=== PATIENT | female | born 1990 | race Caucasian/White ===

== ENCOUNTER 2017-01-08 23:20 | Inpatient (IN) | payer BC ==
[~2017-01-08] VITALS: Ht 157.5 cm; Wt 69.6 kg
[2017-01-09 01:16] VITALS: BP 113/78; PULSE 113; Ht 157.5 cm; Wt 69.6 kg
[2017-01-09] MEDS ORDERED: LACTATED RINGER'S 1,000 ML IV SCH (01:19)
[2017-01-09] MEDS ORDERED: LACTATED RINGER'S 1,000 ML IV PRN (01:30)
[2017-01-09] MEDS ORDERED: OXYTOCIN 30 UNITS/LR 500 ML IV PRN ×2 (01:30→03:00)
[2017-01-09] MEDS ORDERED: BUTORPHANOL 2 MG INJ IV PRN (01:30)
[2017-01-09] MEDS ORDERED: LIDOCAINE 1% (MPF) 30 ML INJ INJ PRN (01:30)
[2017-01-09] MEDS ORDERED: OXYTOCIN 30 UNITS/LR 500 ML IV SCH ×3 (01:30→03:00)
[2017-01-09] MEDS ORDERED: MISOPROSTOL 200 MCG TAB PR PRN ×2 (01:30→03:00)
[2017-01-09] MEDS ORDERED: METHYLERGONOVINE 0.2 MG INJ IM PRN ×2 (01:30→03:00)
[2017-01-09] MEDS ORDERED: CARBOPROST 250 MCG INJ IM PRN ×2 (01:30→03:00)
[2017-01-09] MEDS ORDERED: OXYCODONE/ASPIRIN (4.88/325) TAB PO PRN (01:30)
[2017-01-09 02:01] LABS: BASOPHILS % 0.3 % (0.0-2.0); EOSINOPHILS % 0.2 % (0.0-7.0); HEMATOCRIT 31.2 % (37.0-47.0); LYMPHOCYTES # 1.6 10^3/ul (0.8-2.9); LYMPHOCYTES % 15.9 % (15.0-51.0); MEAN CORPUSCULAR HGB CONC 32.1 g/dl (32.0-37.0); MEAN CORPUSCULAR VOLUME 74.8 fl (82.0-101.0); MEAN PLATELET VOLUME 10.7 fl (7.4-10.4); MONOCYTE # 0.8 10^3/ul (0.3-0.9); MONOCYTES % 7.6 % (0.0-11.0); NEUTROPHILS % 74.7 % (39.0-77.0); PLATELET COUNT 232 10^3/UL (140-415); RED BLOOD COUNT 4.17 10^6/ul (4.20-5.40); RED CELL DISTRIBUTION WIDTH 14.5 % (11.5-14.5); WHITE BLOOD COUNT 9.9 10^3/ul (4.8-10.8)
[2017-01-09 02:29] LABS: INR 0.91; PROTIME 12.2 Sec (12.2-14.2)
[2017-01-09 02:30] LABS: PARTIAL THROMBOPLASTIN TIME 23.3 Sec (25.0-35.0)
[2017-01-09] MEDS ORDERED: HYDROCODONE/APAP (5/325) TAB PO PRN ×2 (03:00)
[2017-01-09] MEDS ORDERED: BENZOCAINE 20% 56 ML SPRAY TOP PRN (03:00)
[2017-01-09] MEDS ORDERED: LANOLIN 7 GM TUBE TOP PRN (03:00)
[2017-01-09] MEDS: LACTATED RINGER'S 1,000 ML IV* SCH ×3 (03:00→19:00)
--- NOTE | 2017-01-09 03:05 | LDN ---
Date/Time of Note Date/Time of Note DATE: 01/09/17 TIME: 03:03 Delivery Summary of a viable baby girl weighing 2925 grams, or 6# 7 oz, 18.5" long, and with Apgars of 9/9. Weeks of Gestation 37w 2d Placenta Delivered: Spontaneously Meconium: none Episiotomy: No Perineal laceration: 2 Laceration repair: 2 small first degree vaginal lacerations repaired with 2-0 chromic for hemostasis. Anesthesia type: Local Estimated blood loss: 150 Sponge & Needle done & correct: Yes All needle counts correct: Yes Any foreign bodies felt in the: No (vagina) Problems: Delivery Information Sex Infant Sex: female Apgars 1 Minute: 9 5 Minute: 9 Suctioning Nose & mouth suctioned at poonam: Yes Delee suction performed: No Umbilical Cord Umbilical cord with: 3 Vessels Cord presentations: no nuchal cord Cord Blood was obtained: Yes Mother & Baby Disposition Disposition Mom & Baby to Maternity; Good: Yes Baby to NICU: No PREETHI HARRIS MD Jan 09, 2017 03:05
--- NOTE | 2017-01-09 03:11 | HP ---
Date/Time of Note Date/Time of Note DATE: 01/09/17 TIME: 03:06 OB - History Hx of Present Free Text/Dictation 26 y.o. with an IUP at 37w 2d who came in active labor progressing rapidly. Chief Complaint: Labor Last Menstrual Period: Apr 23, 2016 Estimated Due Date: Jan 28, 2017 : 4 Para: 3 Care: Good Care Ultrasounds: Normal mid trimester US (Diet controlled) Obstetrical Complications: Gestational Diabetes Medical Complications: None Past Family/Social History * Past Medical, Surgical, Family and Obstetric Histories reviewed from chart. Blood Type: O+ Rubella: immune RPR/VDRL: Negative GBS Status: Negative HBsAG: Negative OB Admission Exam Vital Signs Vital Signs Vital Signs Date Time Temp Pulse Resp B/P Pulse Ox O2 Delivery O2 Flow Rate FiO2 01/09/17 01:16 98.9 113 113/78 97 Room Air Physical Exam HEENT: WNL Heart: Rhythm Normal Lungs: Clear Abdomen: WNL Extremities: Normal Reflexes: Normal Cervical Dilatation: 4cm Effacement: 75% Station: -2 Membranes: Intact Amniotic Fluid: Clear Heart Rate: 140's Accelerations: Accelerations Present Decelerations: No Decelerations Varibility: Moderate Contractions on Admission: < 5 Minutes Apart Last 72 hours Lab Results CBC & BMP 01/09/17 01:35 OB Assessment/Plan Reason for admission: active labor Other Assessment: Gestational diabetes, diet controlled. Plan: Expectant Management PREETHI HARRIS MD Jan 09, 2017 03:11
--- NOTE | 2017-01-09 04:09 | TRIAGE ---
OB Triage Datetime Report Generated by CPN: 01/09/2017 04:08 Datetime: 01/09/2017 03:22 Stage of : Recovery Pain Assessment Pain Scale: 7 Pain Presence: Constant Pain Type: Cramping Pain Location: Abdomen Pain Goal: 2 Pain Relief Measures: Comfort Measures Datetime: 01/09/2017 03:07 Stage of : Recovery Pain Assessment Pain Scale: 7 Pain Presence: Constant Pain Type: Cramping Pain Location: Abdomen Pain Goal: 2 Pain Relief Measures: Comfort Measures Datetime: 01/09/2017 02:55 Stage of : Recovery Datetime: 01/09/2017 02:52 Stage of : Recovery Pain Assessment Pain Scale: 8 Pain Presence: Constant Pain Type: Cramping Pain Location: Abdomen Pain Goal: 2 Pain Relief Measures: Comfort Measures Datetime: 01/09/2017 02:37 Stage of : Recovery Temperature Route: Axillary Pain Assessment Pain Scale: 8 Pain Presence: Constant Pain Type: Cramping Pain Location: Abdomen Pain Goal: 2 Pain Relief Measures: Comfort Measures Datetime: 01/09/2017 02:28 Labor Evaluation Frequency: 1-6 Monitor Mode: External Duration (sec)2399: 60-110 Quality: Strong Pattern: Normal: <= 5 Contractions in 10 Minutes Resting Tone [place]: Relaxed Heart Rate FHR Baseline Rate: 130 Monitor Mode: External US Variability: Moderate 6-25 bpm Comments: UNABLE TO DETERMINE IF DECELS OCCURED DURING UC'S PT WAS SHIFTING IN BED WITH E VERY UC MAKING IT IMPOSSIBLE TO MONITOR BABY. Datetime: 01/09/2017 02:26 Vaginal Exam Dilatation (cms): 10.0 Effacement (%): 100 Station: 1 Membrane Status: Ruptured Membranes Rupture Method: Spontaneous Amniotic Fluid Color: Clear Amniotic Fluid Amount: Small Datetime: 01/09/2017 02:22 Vaginal Exam Dilatation (cms): 5.0 Datetime: 01/09/2017 02:17 Vaginal Exam Dilatation (cms): 5.0 Effacement (%): 90 Station: -1 Datetime: 01/09/2017 02:10 Monitor Mode: External US Comments: UNABLE TO MAINTAIN CONTINOUS MONITORING DUE TO PT SHIFTING IN BED WITH EVERY UC Datetime: 01/09/2017 01:58 Assessment Type: Admission Assessment Vaginal Bleeding: None Maternal Assessment Level of Consciousness: Fully Conscious Headache: Denies Blurred Vision: No Respiratory Effort: Unlabored; Regular Rhythm; Equal Expansion Nausea/Vomiting: Denies RUQ Epigastric Pain: Denies Fall Risk Assessment History of Falling: (0) No Secondary Diagnosis: (0) No Ambulatory Aid: (0) Bedrest/Nurse Assist IV Therapy: (0) No Gait: (0) Normal/Bedrest/Immobile Mental Status: (0) Oriented to Own Ability Fall Score: 0 Fall Risk Score Definition: No Risk: No action required Pain Assessment Pain Scale: 6 Pain Presence: Intermittent Pain Type: Contraction Pain Location: Abdomen Pain Goal: 2 Membrane Status: Intact Datetime: 01/09/2017 01:44 Arrived By: Ambulatory Datetime: 01/09/2017 01:40 Stage of : Labor Datetime: 01/09/2017 01:24 Membrane Status: Intact Datetime: 01/09/2017 01:16 Pain Assessment Pain Scale: 6 Pain Assessment Comments: PT. STATES PAIN REMAINS THE SAME, BUT FEELING THE UC'S MORE FREQUENTLY Datetime: 01/09/2017 01:08 Vaginal Exam Dilatation (cms): 3.5 Effacement (%): 70 Station: -2 Exam By: SELENE RN Datetime: 01/09/2017 00:17 Stage of : OB Triage Datetime: 01/08/2017 23:47 Stage of : OB Triage Datetime: 01/08/2017 23:38 Vaginal Exam Dilatation (cms): 2.0 Effacement (%): 60 Station: -3 Exam By: SELENE RN Vaginal Bleeding: None Cervix, Consistency: Moderate Cervix, Position: Posterior Presentation 'A': Cephalic Datetime: 01/08/2017 23:33 Time of Arrival: 01/08/2017 23:12 EGA: 37.1 Arrived By: Wheelchair Arrived From: Home Chief Complaint: UC'S SINCE 22:00 Movement: Present Contractions: Irregular Time Contractions Began: 01/08/2017 22:00 Contractions: Q9-10MIN Rupture of Membranes: Denies Vaginal Bleeding: None Vaginal Discharge: Denies Recent Sexual Intercouse: Denies Abdominal Trauma: Not Applicable Patient Complaints: Contractions Initial Plan: EFM, SVE, CALL OB Datetime: 01/08/2017 23:32 Membranes Ruptured Date/Time: 01/09/2017 02:26 Membranes Rupture Method: Spontaneous Amniotic Fluid Color: Clear Amniotic Fluid Amount: Small Amniotic Fluid Odor: Normal Datetime: 01/08/2017 23:31 Stage of : OB Triage Assessment Type: Triage Maternal Assessment Level of Consciousness: Fully Conscious Headache: Denies Blurred Vision: No Respiratory Effort: Unlabored; Regular Rhythm; Equal Expansion Nausea/Vomiting: Denies RUQ Epigastric Pain: Denies Facial Edema: None Temperature Route: Oral Fall Risk Assessment History of Falling: (0) No Secondary Diagnosis: (0) No Ambulatory Aid: (0) Bedrest/Nurse Assist IV Therapy: (0) No Gait: (0) Normal/Bedrest/Immobile Mental Status: (0) Oriented to Own Ability Fall Score: 0 Fall Risk Score Definition: No Risk: No action required
[2017-01-09 04:15] VITALS: BP 116/55; PULSE 73; RESP 20
[2017-01-09] MEDS: IBUPROFEN 600 MG TAB PO SCH ×4 (05:17→23:45)
[2017-01-09 08:10] VITALS: BP 96/59; PULSE 76
[2017-01-09 12:15] VITALS: BP 98/58; PULSE 71; RESP 18
[2017-01-09 15:30] VITALS: BP 101/78; PULSE 81; RESP 18
[2017-01-09 20:00] VITALS: BP 93/53; PULSE 85; RESP 20
[2017-01-10] MEDS: LACTATED RINGER'S 1,000 ML IV* SCH ×3 (03:00→19:00)
[2017-01-10 04:12] VITALS: BP 110/62; PULSE 71; RESP 20
[2017-01-10] MEDS: IBUPROFEN 600 MG TAB PO SCH ×4 (05:28→23:40)
[2017-01-10 07:20] VITALS: BP 107/69; PULSE 79; RESP 19
[2017-01-10 09:56] LABS: BASOPHILS % 0.3 % (0.0-2.0); EOSINOPHILS # 0.1 10^3/ul (0.0-0.5); EOSINOPHILS % 1.1 % (0.0-7.0); HEMATOCRIT 30.9 % (37.0-47.0); HEMOGLOBIN 9.6 g/dl (12.0-16.0); LYMPHOCYTES # 1.9 10^3/ul (0.8-2.9); LYMPHOCYTES % 20.3 % (15.0-51.0); MEAN CORPUSCULAR HEMOGLOBIN 23.9 pg (29.0-33.0); MEAN CORPUSCULAR HGB CONC 31.1 g/dl (32.0-37.0); MEAN CORPUSCULAR VOLUME 77.1 fl (82.0-101.0); MEAN PLATELET VOLUME 11.5 fl (7.4-10.4); MONOCYTE # 0.7 10^3/ul (0.3-0.9); MONOCYTES % 7.3 % (0.0-11.0); NEUTROPHILS % 69.6 % (39.0-77.0); PLATELET COUNT 214 10^3/UL (140-415); RED BLOOD COUNT 4.01 10^6/ul (4.20-5.40); RED CELL DISTRIBUTION WIDTH 14.6 % (11.5-14.5); WHITE BLOOD COUNT 9.2 10^3/ul (4.8-10.8)
[2017-01-10 15:51] VITALS: BP 107/56; PULSE 87; RESP 19
[2017-01-10 20:15] VITALS: BP 105/63; PULSE 79; RESP 18
[2017-01-11 04:00] VITALS: BP 98/56; PULSE 77; RESP 18
[2017-01-11] MEDS: IBUPROFEN 600 MG TAB PO SCH ×2 (05:44→12:22)
[2017-01-11 07:30] VITALS: BP 96/56; PULSE 72; RESP 18
[2017-01-11] MEDS ORDERED: DIPHTH/TET/ACEL PERTUSS (ADULT) 0.5 ML VIAL IM* ONE (09:00)
--- NOTE | 2017-01-11 10:08 | PD.PPDC ---
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
--- NOTE | 2017-01-11 10:10 | DS ---
Date/Time of Note Date/Time of Note DATE: 01/11/17 TIME: 10:09 Obstetrical Discharge Record Final Diagnosis Final Diagnosis: Term delivered Vaginal Delivery Obstetrical Delivery: Spontaneous, Laceration, Repaired Complications Augmentation: No Induction: No Condition on Discharge Physical Assessment Last Vitals: T=98.3 BP 98/56 Voiding: Yes Bowel Movement: Yes Breast: Filling Fundus: Firm Episiotomy: Laceration repaired and intact. Calf Tenderness: No Patient Condition: Good PREETHI HARRIS MD Jan 11, 2017 10:10
== END 2017-01-11 15:43 | disposition home or self-care (01) | DRG 775 ==
LOC: L-D 23:20 → OBT 23:20 → L-D 01-09 01:15 → OBT 01-09 01:15 → PP1 01-09 04:26
PROVIDERS: ADMIT Obstetrics & Gynecology; ATTEND Obstetrics & Gynecology
PROC: 10E0XZZ Delivery of Products of Conception, External Approach (ICD-10-PCS; principal; 2017-01-09)
PROC: 0KQM0ZZ Repair Perineum Muscle, Open Approach (ICD-10-PCS; 2017-01-09)
PROC: 3E033VJ Introduction of Other Hormone into Peripheral Vein, Percutaneous Approach (ICD-10-PCS; 2017-01-09)
DX: O24.429 Gestational diabetes mellitus in childbirth, unspecified control (principal); O70.1 Second degree perineal laceration during delivery; Z3A.37 37 weeks gestation of pregnancy; Z37.0 Single live birth
CPT/HCPCS: 85025; 85610; 85730; 86592; 86900; 86901; 90715; G0463; J2590; J7120